=== PATIENT | male | born 1970 | race Caucasian/White ===

== ENCOUNTER 2017-01-21 16:48 | Emergency (ER) | payer SELFPAY ==
[~2017-01-21] VITALS: Ht 180.3 cm; Wt 90.0 kg
[~2017-01-21 16:48] MED LIST: ABILIFY5 MG PO; ALBUTEROL0.083 % IN; CIPRO500 MG OR; LORTAB 1010 MG PO; MULTIVITAM10 PO; NAPROSYN500 MG PO; OXYCODONE15 MG PO; TYLENOL120 MG RE; XANAX0.5 MG PO; [UNRECOGNIZED DRUG - OTHER] OR; [UNRECOGNIZED DRUG - SUPPLY]
[2017-01-21] MEDS ORDERED: FLEXERIL PO (17:17)
[2017-01-21] MEDS ORDERED: MOTRIN800 MG PO (17:17)
[2017-01-21] MEDS ORDERED: TRAMADOL HYDROC50 MG PO (17:17)
[2017-01-21 17:35] VITALS: BP 129/74
== END 2017-01-21 17:35 | disposition home or self-care (01) | DRG 605 ==
LOC: ED 16:48
DX: S10.93XA Contusion of unspecified part of neck, initial encounter (principal); S13.4XXA Sprain of ligaments of cervical spine, initial encounter; W11.XXXA Fall on and from ladder, initial encounter; Y93.H9 Activity, other involving exterior property and land maintenance, building and construction; Y92.028 Other place in mobile home as the place of occurrence of the external cause

== ENCOUNTER 2017-07-02 18:52 | Emergency (ER) | payer SELFPAY ==
[~2017-07-02] VITALS: Ht 180.3 cm; Wt 98.0 kg
[~2017-07-02 18:52] MED LIST changes: +FLEXERIL PO; +MOTRIN800 MG PO; +TRAMADOL HYDROC50 MG PO
[2017-07-02] MEDS ORDERED: LORTAB 1010 MG PO (20:07)
[2017-07-02] MEDS ORDERED: KEFLEX500 M1 PO (20:07)
[2017-07-02 20:44] VITALS: BP 156/100
== END 2017-07-02 20:57 | disposition home or self-care (01) | DRG 563 ==
LOC: ED 18:52
PROC: 2W3EX1Z Immobilization of Right Hand using Splint (ICD-10-PCS; principal; 2017-07-02)
DX: S62.326A Displaced fracture of shaft of fifth metacarpal bone, right hand, initial encounter for closed fracture (principal); S62.631A Displaced fracture of distal phalanx of left index finger, initial encounter for closed fracture; W23.1XXA Caught, crushed, jammed, or pinched between stationary objects, initial encounter; Y93.89 Activity, other specified; Y92.009 Unspecified place in unspecified non-institutional (private) residence as the place of occurrence of the external cause

== ENCOUNTER 2018-01-09 13:41 | Emergency (ER) | payer SELFPAY ==
[~2018-01-09] VITALS: Ht 180.3 cm; Wt 98.0 kg
[~2018-01-09 13:41] MED LIST changes: +KEFLEX500 M1 PO
[2018-01-09] MEDS ORDERED: METFORMIN1000 MG PO (14:08)
[2018-01-09 14:37] LABS: HEMATOCRIT 43.8 % (39.0-50.0); HEMOGLOBIN 14.5 g/dl (14.0-18.0); IMMATURE GRANULOCYTES 0.4 % (0.0-1.0); MEAN CORPUSCULAR HGB 31.7 pG CALC (26.0-32.0); MEAN CORPUSCULAR HGB CONC 33.1 g/L CALC (32.0-36.0); NEUT# 4.44 thou/uL (1.82-7.42); RED BLOOD COUNT 4.57 mill/uL (4.70-6.10); RED CELL DISTRI WIDTH 12.6 % (11.5-15.5)
[2018-01-09 14:45] LABS: MEAN CELL VOLUME 95.8 fL CALC (80.0-100.0)
[2018-01-09 14:52] LABS: ANION GAP 15 (6-22 (CALC)); BUN 12 mg/dL (9-20); BUN/CREATININE RATIO 13 (12-20 (CALC)); CARBON DIOXIDE 20 mmol/l (22-30); CHLORIDE 107 mmol/l (95-108); GFR > 60 ML/MIN (>=60 (CALC)); GFR FOR AFR.AMER. > 60 ML/MIN (>=60 (CALC)); POTASSIUM 4.1 mmol/l (3.5-5.1); SODIUM 137 mmol/l (137-146)
[2018-01-09 15:07] LABS: BARBITURATES NEGATIVE (NEGATIVE); COCAINE NEGATIVE (NEGATIVE); METHADONE NEGATIVE (NEGATIVE); OXCYCODONE NEGATIVE (NEGATIVE); TETRAHYDROCANNABIONOL NEGATIVE (NEGATIVE); TRICYLIC ANTIDEPRESSANTS NEGATIVE (NEGATIVE)
[2018-01-09 16:24] VITALS: BP 124/75
== END 2018-01-09 16:34 | disposition home or self-care (01) | DRG 563 ==
LOC: ED 13:41
PROVIDERS: Family Medicine
DX: S29.012A Strain of muscle and tendon of back wall of thorax, initial encounter (principal); R07.9 Chest pain, unspecified; M79.7 Fibromyalgia; F17.210 Nicotine dependence, cigarettes, uncomplicated; Z85.118 Personal history of other malignant neoplasm of bronchus and lung; X58.XXXA Exposure to other specified factors, initial encounter; Z90.2 Acquired absence of lung [part of]

== ENCOUNTER 2019-09-29 | Emergency (ER) | payer SELFPAY ==
[~2019-09-29] MED LIST changes: +METFORMIN1000 MG PO
[2019-09-29] MEDS ORDERED: TRAMADOL HYDROC50 MG PO (19:56)
[2019-09-29] MEDS ORDERED: FLEXERIL PO (19:56)
== END 2019-09-29 20:00 | disposition home or self-care (01) | DRG 563 ==
DX: S39.012A Strain of muscle, fascia and tendon of lower back, initial encounter (principal); S16.1XXA Strain of muscle, fascia and tendon at neck level, initial encounter; S29.012A Strain of muscle and tendon of back wall of thorax, initial encounter; F17.290 Nicotine dependence, other tobacco product, uncomplicated; W11.XXXA Fall on and from ladder, initial encounter; Y92.009 Unspecified place in unspecified non-institutional (private) residence as the place of occurrence of the external cause